=== PATIENT | female | born 2000 | race Caucasian/White ===

== ENCOUNTER → 2021-11-14 11:12 | Outpatient (CLI) | payer OTHER, SELFPAY ==
--- NOTE | ~2021-11-14 | US_ITS ---
EXAMINATION: US OB transvaginal DATE: 11/14/2021 11:39 INDICATION: Evaluate viability TECHNIQUE: Real-time transvaginal obstetric ultrasound. FINDINGS: No prior studies for comparison. The uterus measures 9.4 x 5.7 x 7.1 cm. There is an intrauterine gestational sac, with pole evert ntified. Uterus is retroverted. The crown rump length measures 3.19 cm, which correlates with a estim ated gestational age of 10 weeks 1 day. heart tones are identified measuring 168 BPM. The ova amber are within normal limits. IMPRESSION: 1. SL IUP with an EGA of 10 weeks, 1 days (EDC by current ultrasound of 06/11/2022). Reviewed, dictated and finalized at location A. W MACHINE ADJUSTER AUTOMATIC IMPRESSION: 1. SL IUP with an EGA of 10 weeks, 1 days (EDC by current ultrasound of 06/11/20 22).
== END ==
PROVIDERS: Visit Provider Nurse Practitioner
DX: Z36.9 Encounter for antenatal screening, unspecified (principal); Z3A.10 10 weeks gestation of pregnancy
CPT/HCPCS: 76817

== ENCOUNTER → 2022-01-23 10:50 | Outpatient (CLI) | payer OTHER, SELFPAY ==
--- NOTE | ~2022-01-23 | US_ITS ---
EXAMINATION: US OB /maternal detail DATE: 01/23/2022 11:51 INDICATION: anatomic survey. TECHNIQUE: Real-time ultrasound of the pelvis was performed. COMPARISON: Ultrasound 11/14/2021 FINDINGS: There is a single living fetus in transverse lie. The placenta is posterior, 6.2 cm from the cervix. heart rate is 138 beats per minute (bpm). The amniotic fluid volume is subjectively normal. The following biometric data were obtained: Biparietal diameter (BPD): 4.7 cm; head circumference (HC): 17.4 cm; abdominal circumference (AC): 15 .7 cm; femur length (FL): 3.1 cm. These measurements are concordant. Estimated weight is 342 g +/- 51 g, which correlates with the 52nd percentile when 06/11/22 is u sed as estimated date of delivery. As single measurements, these parameters are each equal to the following estimated gestational ages w ith ranges of +/- 2 standard deviations: BPD: 20 weeks 2 days (18 weeks 4 days - 22 weeks 0 days). HC: 20 weeks 0 days (18 weeks 3 days - 21 weeks 3 days). AC: 20 weeks 6 days (18 weeks 6 days - 22 weeks 6 days). FL: 19 weeks 4 days (17 weeks 6 days - 21 weeks 3 days). estimated gestational age based solely on measurements from this exam is 20 weeks 1 days +/- 1 weeks 3 days. The cerebral ventricles, cerebellum, cisterna magna, nuchal fold, and visualized portions of the spin e are normal. The heart is normal. The diaphragm, stomach, kidneys, and bladder are normal. There are two umbilical arteries to yield a 3-vessel cord. The cord insertion is normal. IMPRESSION: 1. Single living fetus in transverse lie. 2. Estimated weight is 342 g +/- 51 g, which correlates with the 52nd percentile when 06/11/22 is used as estimated date of delivery. This date was set by ultrasound on 11/14/2021. 3. Normal anatomic survey. Reviewed, dictated and finalized at location A. IMPRESSION: 1. Single living fetus in transverse lie. 2. Estimated weight is 342 g +/- 51 g, which correlates with the 52nd pe rcentile when 06/11/22 is used as estimated date of delivery. This date was set by ultrasound on 11/14/2021. 3. Normal anatomic survey.
== END ==
PROVIDERS: PCP Family Medicine; Visit Provider Obstetrics & Gynecology Gynecology
DX: Z34.92 Encounter for supervision of normal pregnancy, unspecified, second trimester (principal); Z3A.20 20 weeks gestation of pregnancy
CPT/HCPCS: 76805

== ENCOUNTER 2022-04-03 08:27 | Outpatient (CLI) | payer OTHER, SELFPAY ==
[2022-04-03] VITALS (9 sets, daily range): BP systolic 111–124; BP diastolic 53–74; PULSE 63–81
--- NOTE | 2022-04-03 09:15 | PC.NURSE ---
Sent to OB from office. Pt states she has swelling of lower extremities which has increased. Pt states was in office and blood pressure was higher than normal . Pt has noted 3+ edema noted to lower extremities with pitting noted. Reflexes 1-2+. No clonus. NO other symptoms. 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
[2022-04-03 09:18] LABS: Basophils Percent Auto 0.3 % (0.2-1.2); Eosinophils Absolute Auto 0.1 K/mm3 (0-0.3); Eosinophils Percent Auto 0.8 % (0-4.4); Hematocrit 25.8 % (37.0-47.0); Hemoglobin 8.1 g/dL (12.0-15.0); Immature Granulocyte Absolute 0.05 K/mm3 (0.00-0.031); Immature Granulocyte Percent A 0.7 % (0-0.5); Lymphocytes Absolute Auto 1.64 K/mm3 (0.9-3.2); Lymphocytes Percent Auto 21.8 % (18.3-44.2); Mean Corpuscular HGB Conc 31.4 g/dl (32-36); Mean Corpuscular Hemoglobin 28.5 pg (26-34); Mean Corpuscular Volume 90.8 fl (80-100); Mean Platelet Volume 9.5 fl (7.4-10.4); Monocytes Absolute Auto 0.5 K/mm3 (0.1-0.6); Monocytes Percent Auto 7.2 % (2.6-8.5); Neutrophils Absolute Auto 5.2 K/mm3 (1.3-6.7); Neutrophils Percent Auto 69.2 % (45.5-73.1); Platelet Count Result 401 k/mm3 (150-375); Red Blood Count 2.84 M/mm3 (4.2-5.4); Red Cell Distribution Width 13.2 % (11.5-14.5); White Blood Count 7.5 K/mm3 (4.5-10.0)
[2022-04-03 09:31] LABS: Appearance Urine Slightly Cloudy (Clear); Bilirubin Urine Negative (Negative); Glucose Urine UA Negative (Negative); Ketones Urine Negative (Negative); Leukocyte Esterase Ur 2+ LEU/UL (NEGATIVE); Nitrate Urine Negative (Negative); Protein Urine Negative (Negative); Specific Grav Ur 1.015 (1.001-1.035); Urobilinogen Urine 0.2 mg/dL (<2.0)
[2022-04-03 09:35] LABS: Mucus Urine Rare /lpf; RBC Urine 0-2 /hpf (0-2); Squamous Epithelial Cell Urine Many /hpf (Few)
[2022-04-03 09:37] LABS: Add Urine Microscopic? YES; Alanine Aminotransferase 12 U/L (6-35); Albumin Level 2.9 g/dL (3.5-5.1); Alkaline Phosphatase 101 U/L (38-126); Anion Gap 4 mmol/L (8-16); Aspartate Amino Transferase 18 U/L (14-36); Bilirubin,Total 0.1 mg/dL (0.2-1.3); Blood Urea Nitrogen 5 mg/dL (7-17); Blood Urine Trace-Intact (Negative); Calcium 8.9 mg/dL (8.4-10.2); Carbon Dioxide 22 mmol/L (22-30); Chloride 109 mmol/L (98-107); Color Urine Light Yellow (Yellow); Estimated Glomerular Filt Rate > 60; Glucose 100 mg/dL (65-110); Potassium 3.4 mmol/L (3.4-5.0); Sodium 135 mmol/L (137-145); Uric Acid 3.3 mg/dL (2.5-7.5)
[2022-04-03 10:42] LABS: Creatinine Urine 46.5 mg/dL; Total Protein Urine Random 12 mg/dL; Ur Ttl Prot Creatinine Ratio 0.26 mg/mg (0-0.20)
--- NOTE | 2022-04-03 11:08 | PC.NURSE ---
Lab results called to Dr. Newell. Pt to start 24 hour urine and call office Wednesday. Pt was prescribed Iron today at [facility]. Pt instructed to get RX filled and take as directed due to her anemia and to have repeat HG in one month as instructed at office today. Supplies sent with pt and pt will return with 24 hour urine tomorrow.
== END 2022-04-03 11:10 | disposition home or self-care (01) ==
LOC: ANHOBOP 08:44 → ANHLDR 08:45
PROVIDERS: PCP Family Medicine; Visit Provider Obstetrics & Gynecology Gynecology
DX: M79.89 Other specified soft tissue disorders (principal); O13.9 Gestational [pregnancy-induced] hypertension without significant proteinuria, unspecified trimester; Z3A.00 Weeks of gestation of pregnancy not specified
CPT/HCPCS: 36415; 59025; 80053; 81001; 82570; 84156; 84550; 85025; 87086; 99199

== ENCOUNTER 2022-04-04 12:16 | Outpatient (NON) | payer OTHER, SELFPAY ==
[2022-04-04 14:21] VITALS: BMI 45.6
[2022-04-04 14:33] LABS: Collection Time Urine 24 HOURS
[2022-04-04 14:35] LABS: Total Volume 24 Hour Urine 1800 ml
[2022-04-04 14:44] LABS: Creatinine Clearance Urine 178.9 ml/min (75-125); Creatinine Urine 88.7 mg/dL; Patient Weight 257 Lbs; Total Protein Urine 24 Hr 198 mg/24hr (28-141); Total Protein Urine Random 11 mg/dL
== END 2022-04-04 12:17 | disposition home or self-care (01) ==
LOC: ANHOBOP 12:17
PROVIDERS: PCP Family Medicine; Visit Provider Obstetrics & Gynecology Gynecology
DX: M79.89 Other specified soft tissue disorders (principal)
CPT/HCPCS: 81050; 82575; 84156

== ENCOUNTER 2022-06-08 10:55 | Inpatient (IN) | payer OTHER, SELFPAY ==
[2022-06-08] VITALS (36 sets, daily range): BP systolic 122–159; BP diastolic 63–93; PULSE 54–80; TEMP 36.4–36.6
[2022-06-08] MEDS: miSOPROStol 25 MCG TABLET VAGINAL (12:48)
[2022-06-08 13:01] LABS: Basophils Percent Auto 0.4 % (0.2-1.2); Eosinophils Absolute Auto 0.1 K/mm3 (0-0.3); Eosinophils Percent Auto 0.8 % (0-4.4); Hemoglobin 9.9 g/dL (12.0-15.0); Immature Granulocyte Absolute 0.04 K/mm3 (0.00-0.031); Immature Granulocyte Percent A 0.5 % (0-0.5); Lymphocytes Absolute Auto 1.71 K/mm3 (0.9-3.2); Lymphocytes Percent Auto 21.4 % (18.3-44.2); Mean Corpuscular HGB Conc 31.9 g/dl (32-36); Mean Corpuscular Hemoglobin 28.9 pg (26-34); Mean Corpuscular Volume 90.6 fl (80-100); Mean Platelet Volume 10.9 fl (7.4-10.4); Monocytes Absolute Auto 0.7 K/mm3 (0.1-0.6); Monocytes Percent Auto 8.8 % (2.6-8.5); Neutrophils Absolute Auto 5.5 K/mm3 (1.3-6.7); Neutrophils Percent Auto 68.1 % (45.5-73.1); Platelet Count Result 370 k/mm3 (150-375); Red Blood Count 3.42 M/mm3 (4.2-5.4); Red Cell Distribution Width 15.7 % (11.5-14.5)
[2022-06-08] MEDS: LACTATED RINGERS 1,000 ML 125 ML IV CONT (17:17)
[2022-06-08] MEDS: OXYTOCIN 30 UNITS/NS 500 ML 30 UNITS/500 ML BAG IV CONT (17:17)
--- NOTE | 2022-06-08 17:31 | WPDOBADMIT ---
Obstetrics - Admit Note Admission Note: record reviewed. No pertinent additions to the history and/or any subsequent changes in the physical findings that are not consistent with the expected course of the were found. Additions to the history and/or subsequent changes in the physical findings follow. Pt arrived for elective IOL at 39 weeks 3 days.
--- NOTE | 2022-06-08 17:32 | PM.OBPNLAB ---
Pain Control Date/time seen: 06/08/22 17:20 Pain control: tolerating well Comments: Feeling occasional cramping/contractions Pelvic Exam Dilation (cm): 3 Effacement (%): 80 station: -3 Amniotic membrane status: Intact Contractions Monitor mode: External Contraction pattern: Irregular Contraction phase: Resting Status status: Category l Assessment and Plan Assessment: induction ongoing Plan: continuous present management Comments: Yao is status post 1 Cytotec for cervical ripening. Her cervix is 3/80%/ -3 station. Discussed option of amniotomy with patient. She would like to wait as long as possible to break her water. Discussed Pitocin as the next step and she is agreeable. Will start Pitocin at this time and titrate as needed to achieve adequate contraction pattern. Anticipate vaginal .
--- NOTE | 2022-06-08 19:19 | WPDANESEPP ---
Anes - Eval Pre Procedure Procedure: labor epidural Date/Time: 06/08/22 19:19 Surgeon: skyler Preop Diagnosis: pain during labor Pre Op Diagnosis: Induction of Labor Patient Data Age: 22 Gender: F Height: Weight: Last Vital Signs Temp 36.6 C 06/08/22 18:12 Pulse 56 L 06/08/22 19:16 BP 159/88 H 06/08/22 19:16 O2 Del Method Room Air 06/08/22 12:29 Allergies Allergy/AdvReac Type Severity Reaction Status Date / Time No Known Allergies Allergy Verified 10/09/21 16:42 Home Medications Medication Instructions Recorded Confirmed Type prenat.vits,juan carlos,[id number] 1 tablet PO DAILY 10/09/21 06/08/22 History albuterol sulfate 90 mcg/actuation 2 puff inhalation Q6H PRN Wheezing 05/16/22 06/08/22 History aerosol inhaler cholecalciferol (vitamin D3) 1,250 1,250 mcg PO WEEKLY 05/16/22 05/16/22 History mcg (50,000 unit) tablet ferrous sulfate 325 mg (65 mg 325 mg PO BID 05/16/22 05/16/22 History iron) tablet Laboratory Tests 06/08/22 06/08/22 06/08/22 12:46 12:46 12:46 WBC 8.0 K/mm3 K/mm3 (4.5-10.0) RBC 3.42 M/mm3 L M/mm3 (4.2-5.4) Hgb 9.9 g/dL L g/dL (12.0-15.0) Hct 31.0 % L % (37.0-47.0) MCV 90.6 fl fl (80-100) MCH 28.9 pg pg (26-34) MCHC 31.9 g/dl L g/dl (32-36) RDW 15.7 % H % (11.5-14.5) Plt Count 370 k/mm3 k/mm3 (150-375) MPV 10.9 fl H fl (7.4-10.4) Immature Gran % (Auto) 0.5 % % (0-0.5) Neut % (Auto) 68.1 % % (45.5-73.1) Lymph % (Auto) 21.4 % % (18.3-44.2) Freeborn % (Auto) 8.8 % H % (2.6-8.5) Eos % (Auto) 0.8 % % (0-4.4) Baso % (Auto) 0.4 % % (0.2-1.2) Lymph # (Auto) 1.71 K/mm3 K/mm3 (0.9-3.2) Freeborn # (Auto) 0.7 K/mm3 H K/mm3 (0.1-0.6) Eos # (Auto) 0.1 K/mm3 K/mm3 (0-0.3) Baso # (Auto) 0.0 K/mm3 K/mm3 (0.0-0.1) Abs Immat Gran (auto) 0.04 K/mm3 H K/mm3 (0.00-0.031) Absolute Neuts (auto) 5.5 K/mm3 K/mm3 (1.3-6.7) Absolute Nucleated RBC 0.0 K/mm3 K/mm3 (0.0-0.012) Nucleated RBC % 0.0 % % (0.0-0.2) RPR Pending Blood Type A Positive Antibody Screen Negative Patient hx anesthesia problems: none Family hx anesthesia problems: none Results Review: All pre-operative results and documents have been reviewed as part of the pre-operative evaluation. [facility] Family History Family History Father Family history of malignant neoplasm of testis Social History Social History (Updated 10/09/21 @ 16:46 by French Claudio PA-C) Smoking status: Never smoker Second hand tobacco smoke exposure: No Alcohol intake: never Substance use: never Substance use type: does not use Spiritual care concerns: No Exam Day of Procedure 06/08/22 19:19
[2022-06-09] VITALS (181 sets, daily range): BP systolic 88–157; BP diastolic 50–126; PULSE 50–282; RESP 16–18; TEMP 35.8–37.1; O2SAT 81–100
[2022-06-09] MEDS: LACTATED RINGERS 1,000 ML 125 ML IV CONT ×2 (02:43→07:50)
[2022-06-09] MEDS: ONDANSETRON INJ 4 MG/2 ML VIAL IV PUSH (06:28)
[2022-06-09] MEDS: fentaNYL CITRATE INJ (*CRX) 100 MCG/2 ML VIAL IV PUSH (06:29)
[2022-06-09] MEDS: FAMOTIDINE 20 MG/2 ML VIAL IV PUSH (06:58)
[2022-06-09 07:08] LABS: Rapid Plasma Reagin Non-Reactive (NonReactive)
--- NOTE | 2022-06-09 07:46 | P.PNOB_ITS ---
Pain Control Date/time seen: 06/09/22 07:30 Pain control: narcotic analgesia Comments: Feeling ctx about every 3 minutes, increasing in intensity. Pelvic Exam Dilation (cm): 4 Effacement (%): 85 station: -3 Amniotic membrane status: Intact Comments: head well applied to cervix. Contractions Monitor mode: External Contraction pattern: Irregular Contraction phase: Resting Status status: Category l Assessment and Plan Pitocin rate (mU/min): 20 Assessment: induction ongoing Comments: Discussed plan of care with Yao and her partner. Given that there has been minimal cervical change with Pitocin alone, recommended amniotomy. Discussed risks and benefits. also discussed recommendation for intrauterine pressure catheter to better evaluate contraction adequacy. She agrees to rupture of memb ranes and IUPC placement. Amniotomy performed with scant return of clear amniotic fluid. Small amount of bloody show present intrauterine pressure catheter inserted and clear fluid returned the catheter. Pitocin rate decreased in half with AROM. Plan to increase Pitocin as needed to achieve adequate contraction pattern. Anticipate vaginal .
[2022-06-09] MEDS: OXYTOCIN 30 UNITS/NS 500 ML 30 UNITS/500 ML BAG 125 UNITS IV CONT (14:11)
--- NOTE | 2022-06-09 14:45 | PM.OBPRVD ---
OB - Delivery Note Procedure Delivery date: 06/09/22 Procedure: Events: Other (Covid in , Asthma, scoliosis) Induction method: Per Misoprostol Protocol Delivery augmentation: Rupture of Membranes Delivery monitor: External FHT, External Uterine and Internal Uterine Route of delivery: Episiotomy description: None Laceration Description: Vaginal (1st degree) and Labial (Bilateral labial. Full thickness button hole to left labia) Delivery repair: vicryl Specimen: Yes Quantitative Blood Loss (ml): 650 Anesthesia type: Epidural Disposition: Floor Narrative: CNM to bedside for delivery. RN reports that she pushed with the patient 1 time and immediately after the push patient had seizure-like posturing in that the patient's eyes rolled back in her head. This lasted about 10 seconds. In pushing was stopped. CNM arrived immediately afterwards. Patient resting in bed with oxygen mask applied effaced. Patient alert and oriented, answers questions appropriately the, and is not postictal. Patient denies headache visual changes or right upper quadrant pain. Viital signs within normal limits. heart rate tracing reassuring. Pushing resumed, and patient quickly progressed to . Immediately before she brought the head to a complete crown there was a slow trickle of bright red blood from the vagina. She delivered the head easily, there was good restitution, and the remainder of the delivered easily. The was placed skin to skin on the maternal abdomen and dried and stimulated. The cord was doubly clamped and cut. Vaginal laceration repaired in the usual fashion. Right labial laceration also repaired in the usual usual fashion with 3-[address] Newell for assistance with remainder of repair. repaired the left labial laceration in the buttonhole laceration to the left labia. There was excellent hemostasis. CBC, CMP, uric acid ordered. Encourage patient to notify staff member immediately for headache, visual changes, or right upper quadrant pain. Baby Date of : 06/09/22 Time of : 13:47 Weeks of gestation at delivery: 39 gender: Male Weight (pounds): 7 Weight (ounces): 11 presentation: vertex position: Left Occiput Anterior Placenta delivery description: Spontaneous Cord Vessel Description: 3 Vessels (marginal insertion) score one minute: 9 score five minutes: 9
--- NOTE | 2022-06-09 14:53 | PM.DS ---
DS: Admitting Diagnosis Discharge Date 06/11/22 Admitting Diagnosis IUP at 39 weeks gestation. Elective IOL Asthma Scoliosis DS: Discharge Diagnosis Discharge Diagnosis (1) (normal spontaneous vaginal delivery): Code(s): O80 - Encounter for full-term uncomplicated delivery Status: Acute DS: Summary Hospital Course Reason for hospitalization: Childbirth Hospital Course: Uncomplicated Status at Discharge Overall status at discharge: patient is progressing back to baseline Time Spent with Patient Time attestation: Total time spent providing and/or coordinating discharge services: Exam Narrative: Alert and oriented. Mood is pleasant and cooperative. Urinating without difficulty. Denies passing any large clots. Perineum with moderate edema. Const: General: no acute distress Orientation/consciousness: patient oriented x3 Limitations: no limitations Resp: Effort & Inspection: normal respiratory effort Auscultation: clear to auscultation bilaterally Cardio: Rate: regular rate GI: Inspection: normal to inspection Neuro: General: patient oriented x3 Extrem: General: normal to inspection Psych: Appearance: grossly normal Mental Status: mental status grossly normal Affect: normal affect Thought process: Normal thought process present DS: Data Data Completed and Pending Pending studies at discharge: Pending at discharge 06/09/22 13:55 Surgical [PTH] Routine Labs on day of discharge: Labs from last 24 hours 06/08/22 12:46 RPR Non-reactive Discharge Plan Discharge Attending physician on discharge: Angelita Newell Discharging Clinician: Nena Warren Anticipated Discharge Date/Time: 06/11/22 14:54 Patient Disposition: Home, Self-Care Activity: may shower Diet: as tolerated and regular Patient Instructions: Antibiotic Form Stand Alone Forms: General Discharge Information Follow-up/Referrals: Nena Warren, CNM [Certified Nurse Tie Binder] - (6 weeks post ) Discharge Medications: New polysaccharide iron complex 150 mg iron Capsule 150 mg PO BIDWM 60 Days Qty: 120 0RF ibuprofen 600 mg Tablet 600 mg PO Q6H PRN (Reason: Cramping) 30 Days Qty: 45 0RF hydrocodone-acetaminophen 5-325 mg tablet 1 tablet PO Q4H PRN (Reason: pain) Qty: 15 0RF docusate sodium 100 mg Capsule 100 mg PO BID PRN (Reason: Constipation) Qty: 60 0RF vit-iron fum-folic ac [ Vitamin with Minerals] 28 mg iron- 800 mcg tablet 1 tablet PO DAILY Qty: 90 3RF norethindrone (contraceptive) [Ortho Micronor] 0.35 mg tablet 0.35 mg PO DAILY 30 Days Qty: 84 0RF Rx Instructions: Start at 4-6 weeks post , once milk supply is well established Continued prenat.vits,juan carlos,[id number] Tablet 1 tablet PO DAILY ferrous sulfate 325 mg (65 mg iron) Tablet 325 mg PO BID cholecalciferol (vitamin D3) 1,250 mcg (50,000 unit) Tablet 1,250 mcg PO WEEKLY Label Comments: Pt unsure of dosage amount Rx Instructions: Pt unsure of dosage amount albuterol sulfate 90 mcg/actuation HFA aerosol inhaler 2 puff INHALATION Q6H PRN (Reason: Wheezing) Label Comments: Rescue Inhaler Date of admission: 06/08/22 10:55 Primary Care Provider: Edwin Haney Admitting Provider: Angelita Newell Attending physician on admission: Angelita Newell Condition: Stable
[2022-06-09] MEDS: IBUPROFEN 600 MG TABLET PO ×2 (16:14→23:40)
[2022-06-09] MEDS: ACETAMINOPHEN 325 MG TABLET 650 MG PO ×2 (17:04→23:40)
[2022-06-09] MEDS: BENZOCAINE 20% AER SPR (*SP) 56 GM CAN 1 SPRAY TOPICAL (17:05)
[2022-06-09] MEDS: WITCH HAZEL 40 PADS 1 PAD TOPICAL (17:05)
[2022-06-09 19:52] LABS: Alanine Aminotransferase 16 U/L (6-35); Albumin Level 2.3 g/dL (3.5-5.1); Alkaline Phosphatase 174 U/L (38-126); Anion Gap 6 mmol/L (8-16); Aspartate Amino Transferase 21 U/L (14-36); Bilirubin,Total 0.1 mg/dL (0.2-1.3); Blood Urea Nitrogen 9 mg/dL (7-17); Calcium 8.4 mg/dL (8.4-10.2); Carbon Dioxide 19 mmol/L (22-30); Chloride 111 mmol/L (98-107); Estimated Glomerular Filt Rate > 60; Glucose 130 mg/dL (65-110); Potassium 3.6 mmol/L (3.4-5.0); Sodium 136 mmol/L (137-145); Uric Acid 4.8 mg/dL (2.5-7.5)
[2022-06-09] MEDS: ZOLPIDEM TARTRATE (*CRX) 5 MG TABLET PO (21:23)
[2022-06-10] MEDS: IBUPROFEN 600 MG TABLET PO ×3 (06:18→21:37)
--- NOTE | 2022-06-10 08:09 | P.PNOB_ITS ---
OB - PN: Subj Subjective Date/time seen: 06/10/22 0730 Patient comments: other (labial and vaginal pain) baby status: doing well [place] feeding status: breast and bottle feeding Narrative: poor latch overnight, consult placed. OB - PN: Obj Data Labs CBC & Chem 7: 06/08/22 12:46 06/09/22 19:22 Labs: Laboratory Results - last 24 hr 06/09/22 19:22 Sodium 136 L Potassium 3.6 Chloride 111 H Carbon Dioxide 19 L Anion Gap 6 L BUN 9 Creatinine 0.70 Estim Creat Clear Calc Not Reportable Estimated GFR > 60 Glucose 130 H Uric Acid 4.8 Calcium 8.4 Total Bilirubin 0.1 L AST 21 ALT 16 Alkaline Phosphatase 174 H Total Protein 5.0 L Albumin 2.3 L OB - PN A/P Plan day: 1 Plan: routine care Comments: [place] ordered for pain. Time Spent With Patient Time: Total time spent is greater than 50% in coordination of care (as documented) at patient's floor/unit and/or counseling patient: Review of Systems Review of Systems: All systems reviewed & are unremarkable except as noted in HPI and below Exam Narrative: Alert and oriented. Mood is pleasant and cooperative. Urinating without difficulty. Denies passing any large clots. Labia with moderate amount of edema. Const: General: no acute distress Orientation/consciousness: patient oriented x3 Limitations: no limitations Resp: Effort & Inspection: normal respiratory effort Auscultation: clear to auscultation bilaterally Cardio: Rate: regular rate GI: Inspection: normal to inspection Neuro: General: patient oriented x3 Extrem: General: normal to inspection Psych: Appearance: grossly normal Mental Status: mental status grossly normal Affect: normal affect Thought process: Normal thought process present
--- NOTE | 2022-06-10 08:39 | WPDANLDPN2 ---
Anes-Prog Note L&D Date/Time: 06/10/22 08:39 Comfortable throughout: labor and delivery Neuraxial method: epidural Epidural/Spinal procedure site: clean & non-tender Neuro status: Neuro function grossly intact. Cardiovascular status: normal Respiratory status: normal Airway patency: baseline Mental status: baseline Post-Op hydration status: normal Vital Signs: Last Vital Signs Temp 97.9 F 06/09/22 19:00 Pulse 97 06/09/22 19:00 Resp 18 06/09/22 19:00 BP 120/79 06/09/22 19:00 Pulse Ox 100 06/09/22 14:25 O2 Del Method Room Air 06/09/22 19:00 Pain score (VAS): 2 I/O: Intake & Output 06/09/22 06/10/22 06/10/22 23:59 07:59 15:59 Intake Total 400 Output Total 60 Balance 340 Post-procedural complaints: none Patient feedback: Patient satisfied with anesthetic care.
[2022-06-10 08:55] VITALS: BP 127/77; PULSE 68; RESP 16; TEMP 36.9; O2SAT 100
[2022-06-10 09:00] VITALS: PULSE 68; RESP 16; O2SAT 100
[2022-06-10] MEDS: DOCUSATE SODIUM 100 MG CAPSULE PO ×2 (09:00→16:04)
[2022-06-10] MEDS: MULTIVIT/MIN/PREN/FOL AC/IRON TABLET 1 TAB PO (09:00)
[2022-06-10] MEDS: WITCH HAZEL 40 PADS 1 PAD TOPICAL (09:00)
[2022-06-10] MEDS: FERROUS SULFATE 324 MG TABLET PO ×2 (09:00→16:04)
[2022-06-10] MEDS: BENZOCAINE 20% AER SPR (*SP) 56 GM CAN 1 SPRAY TOPICAL (09:00)
[2022-06-10] MEDS: HYDROcodone/acetaminophen (*CRX) 5-325 MG TABLET 1 TAB PO ×3 (09:00→21:37)
[2022-06-10 11:56] VITALS: BP 115/62; PULSE 57; RESP 18; TEMP 37.1; O2SAT 100
[2022-06-10 12:00] VITALS: PULSE 57; RESP 18; O2SAT 100
[2022-06-10 14:56] LABS: Hematocrit 25.6 % (37.0-47.0); Hemoglobin 8.1 g/dL (12.0-15.0)
--- NOTE | 2022-06-10 16:59 | PC.NURSE ---
[id number] Introductions were made, then consulted with patient to assess needs related to . Mother led the conversation with her?plans to feed?her infant and the?experience so far. Resources provided for inpatient and outpatient services using a resource guide and mom/baby guide. Mother voiced understanding of information and requests assistance. Mother works with her infant with encouragement and education. Encouraged understanding of the benefits of skin to skin (unwrapping and placing vertically on her chest), responsive feeding and how to watch for early feeding signs, frequency of feeding on demand about every 8-12 times in 24 hours (every 2-3 hours), milk production, hand expression, risks and benefits of using a nipple shield, care and usage of pumping, signs of adequate intake/output using the pie demonstration, stimulating with massaging touch and how to record on the feeding sheet. Nipple care reviewed with optimal latch and good positioning. Reviewed good handwashing when or touching the breast/nipples to prevent infection. Resources used to facilitate learning were used with the visual handouts, tool. is not demonstrating efforts to breastfeed. Blood sugar was resulted at 68 mg/dl, large transitional stool diaper changed, discussed supplementing this morning with formula along with the risks and benefits. Mother voiced understanding of responsive feedings, stimulating with skin to skin, hand expressed colostrum, massage touch, talking to infant to encourage if it has been 2 -3 hours since the start of the last , to call if does not latch or there is discomfort with . 1608 - RN to purposefully round on patient and primary RN was taking to the nursery for testing. is demonstrating feeding cues. 1625 - 1651 RN placed infant skin to skin with mother to calm and reorganize. is demonstrating late feeding cues with crying and is difficult to calm. Mother is able to calm with soft sh sounds, patting, skin to skin with encouragement and education. Reviewed working with infant, breast, nipples and how to protect the nipples with an optimal deep latch, good positioning, and good hand washing. Reviewed positioning and alignment, supporting breast, off-centered (asymmetrical latch) and leading with the chin with big open wide gape. Infant latched optimally to the left breast in a modified laid-back cross cradle position. Education given to mother of how to visualize suck/swallow ratios. Infant was able to maintain latch without discomfort to mother after the 3rd attempt. Nipple care reviewed with optimal latch and good positioning. Mother voiced understanding of the education shared, calling for assistance if the does not latch or if there is discomfort with . Reported to the primary RN.
[2022-06-10 20:15] VITALS: BP 129/83; PULSE 103; RESP 18; TEMP 36.8; O2SAT 97
[2022-06-11] MEDS: HYDROcodone/acetaminophen (*CRX) 5-325 MG TABLET 1 TAB PO ×4 (01:52→15:26)
[2022-06-11] MEDS: IBUPROFEN 600 MG TABLET PO (06:08)
[2022-06-11] MEDS: SIMETHICONE 80 MG TAB.CHEW PO (06:09)
[2022-06-11 08:00] VITALS: PULSE 84; RESP 18; O2SAT 100
[2022-06-11 08:15] VITALS: BP 132/82; PULSE 84; RESP 18; TEMP 37; O2SAT 100
--- NOTE | 2022-06-11 10:35 | PC.NURSE ---
1003 - 0097 Mother led the conversation with her experience and plan to feed her so far and her ability to latch her infant this morning at 0547 - 0557 with no pain. Parents have a plan of attempting to breastfeed, pumping, supplementing with formula to feed infant. Mother states she has a relative that had a baby not breastfeed in the hospital and is now successfully at home and that is her plan at this time. Reviewed with the parents of guidelines of feeding appropriately for growth of and stimulating infant to eat. Infant has had several attempts at the breast, formula fed at 0600 due to a lack of effectively, mother has been pumping her breast for milk production and infant meets the outcomes for weight, output and jaundice at this time. Mother states she is confident to continue attempting to breastfeed and feed her at home, when to call for assistance and denies any additional assistance or education at this time. is sleeping in the bassinet, it has been 4 hours since the last feeding. Reviewed education of skin to skin, stimulating infant to feed and mother received offer of placing her infant skin to skin on her chest. is sleepy and makes no effort to breastfeed. Mother makes a decision to formula feed at this time, then pump her breast for stimulation. Reinforced understanding of milk production, transition of milk, signs of adequate intake, prevention/relief of engorgement, responsive after visualizing feeding cues, the different methods of stimulating to breastfeed 2-3 hours after the start of the last feeding, community resources, medication information reviewed per [employer] and when to call a provider using the resource of the mom and baby guide/[facility] website. Mother voiced understanding of the education shared.
[2022-06-11] MEDS: DOCUSATE SODIUM 100 MG CAPSULE PO (10:55)
[2022-06-11] MEDS: MULTIVIT/MIN/PREN/FOL AC/IRON TABLET 1 TAB PO (10:55)
[2022-06-11] MEDS: FERROUS SULFATE 324 MG TABLET PO ×2 (11:01→11:02)
--- NOTE | 2022-06-11 13:09 | PM.OBPNVD ---
OB - PN: Subj Subjective Date/time seen: 06/11/22 1250 Patient comments: pain well controlled feeding status: breast and bottle feeding OB - PN: Obj Data Labs CBC & Chem 7: 06/10/22 14:48 06/09/22 19:22 Labs: Laboratory Results - last 24 hr 06/10/22 14:48 Hgb 8.1 L Hct 25.6 L OB - PN A/P Assessment and Plan (1) (normal spontaneous vaginal delivery): Code(s): O80 - Encounter for full-term uncomplicated delivery Status: Acute (2) Anemia: Qualifiers: Anemia type: unspecified type Qualified Code(s): D64.9 - Anemia, unspecified Code(s): D64.9 - Anemia, unspecified Status: Acute (3) Mother currently breast-feeding: Code(s): Z39.1 - Encounter for care and examination of lactating mother Status: Acute Plan day: 2 Plan: discharge home Time Spent With Patient Time: Total time spent is greater than 50% in coordination of care (as documented) at patient's floor/unit and/or counseling patient: Review of Systems Review of Systems: All systems reviewed & are unremarkable except as noted in HPI and below Exam Narrative: Alert and oriented. Mood is pleasant and cooperative. Urinating without difficulty. Denies passing any large clots. Perineum with moderatel edema. Sutures intact, labia healing. Const: General: no acute distress Orientation/consciousness: patient oriented x3 Limitations: no limitations Resp: Effort & Inspection: normal respiratory effort Auscultation: clear to auscultation bilaterally Cardio: Rate: regular rate GI: Inspection: normal to inspection Neuro: General: patient oriented x3 Extrem: General: normal to inspection Psych: Appearance: grossly normal Mental Status: mental status grossly normal Affect: normal affect Thought process: Normal thought process present
--- NOTE | 2022-06-11 13:39 | PC.NURSE ---
Patient viewed the discharge video Mother & Baby Care, The First Two Weeks . Patient was given the opportunity and encouraged to ask questions. Patient verbalized understanding of information shared and has been given the mother/baby guide for home reference.
[2022-06-12 11:25] VITALS: BP 129/76; PULSE 96; RESP 20; TEMP 36.9; O2SAT 100
== END 2022-06-11 15:29 | disposition home or self-care (01) | DRG 807 ==
LOC: ANHLDR 06-09 14:54 → ANHOB2 06-09 18:34
PROVIDERS: Advanced Practice Midwife; Admitting Provider Obstetrics & Gynecology Gynecology; PCP Family Medicine; Visit Provider Obstetrics & Gynecology Gynecology
DX: O76 Abnormality in fetal heart rate and rhythm complicating labor and delivery (principal); Z37.0 Single live birth; O99.52 Diseases of the respiratory system complicating childbirth; J45.909 Unspecified asthma, uncomplicated; M41.9 Scoliosis, unspecified; Z86.16 Personal history of COVID-19; O43.123 Velamentous insertion of umbilical cord, third trimester; O99.02 Anemia complicating childbirth; Z3A.39 39 weeks gestation of pregnancy; O70.0 First degree perineal laceration during delivery
CPT/HCPCS: 36415; 80053; 84550; 85014; 85018; 85025; 86592; 86850; 86900; 86901; 88307; A9270; J2405; J2590; J2795; J3010; J7120

== ENCOUNTER 2023-08-16 15:59 | Outpatient (CLI) | payer OTHER, SELFPAY ==
--- NOTE | ~2023-08-16 | US_ITS ---
EXAMINATION: US OB transvaginal DATE: 08/16/2023 16:24 INDICATION: Uncertain dates. TECHNIQUE: Real-time transvaginal pelvic ultrasound was performed. COMPARISON: None. FINDINGS: The uterus measures 8.7 x 6.0 x 6.7 cm. There is an intrauterine gestational sac. A yolk sac is ident ified. The crown rump length measures 1.9 cm, which correlates with an estimated gestational a ge of 8 weeks and 3 day(s) (+/-) 5 day(s). heart motion is identified measuring 175 beats per m inute (bpm) by M-mode Doppler. The right ovary is not visualized. The left ovary measures 2.2 x 2.2 x 2.1 cm. There is no free fluid in the pelvis. IMPRESSION: 1. Single living intrauterine gestation with estimated date of delivery of 03/24/2024. Reviewed, dictated and finalized at location E. DING CONSULTANT IMPRESSION: 1. Single living intrauterine gestation with estimated date of delivery of 03/13.
== END 2023-08-16 16:00 ==
LOC: MICIMG 16:00
PROVIDERS: PCP Advanced Practice Midwife; Visit Provider Advanced Practice Midwife
DX: Z36.87 Encounter for antenatal screening for uncertain dates (principal); Z3A.00 Weeks of gestation of pregnancy not specified
CPT/HCPCS: 76817

== ENCOUNTER 2023-11-06 10:48 | Outpatient (CLI) | payer OTHER, SELFPAY ==
--- NOTE | ~2023-11-06 | US_ITS ---
EXAMINATION: US OB /maternal detail DATE: 11/06/2023 11:38 INDICATION: survey TECHNIQUE: Multiple obstetric sonographic images performed. FINDINGS: Comparison ultrasound dated 08/16/2020 There is a single living fetus in breech presentation. The placenta is anterior without placenta pre via. Placental margin 5.7 cm to the cervix. Cervical length 3.7 cm. Amniotic fluid volume is subjecti vely normal. cardiac activity and movement is noted with a heart rate of 138 beats per minute. The following anatomy was identified as normal: 4 chamber heart 3 vessel cord cord insertion kidneys urinary bladder stomach spine diaphragm ventricles cisterna magna cerebellum There is mild prominence of the nuchal fold measuring 0.55 cm. The following biometric data were obtained: BPD: 49mm corresponds to gestational age 20 weeks 5 days. Head circumference: 187 mm corresponds to gestational age 21 weeks 0 days. Abdominal circumference: 153 mm corresponds to gestational age 20 weeks 4 days. Femur length: 32 mm corresponds to gestational age 19 weeks 6 days. Head circumference to abdominal circumference ratio: 1.22 (normal range for expected gestational age is 1.07-1.25). Estimated weight: 345 grams +/- 52 grams using Hadlock method. IMPRESSION: 1: Single living intrauterine with an estimated gestational age of 20weeks 1days by initial ultrasound measurements, with an EDC of 03/24/2024 in vertex presentation. 2. Mild nuchal thickening measuring 1.55 cm. Recommend attention to this on follow-up examination. O therwise, normal survey. Reviewed, dictated and finalized at location A. ROL OPERATOR IMPRESSION: 1: Single living intrauterine with an estimated gestational age of 20 weeks 1days by initial ultrasound measurements, with an EDC of 03/24/2024 in alysia dayo presentation. 2. Mild nuchal thickening measuring 1.55 cm. Recommend attention to this on fo llow-up examination. Otherwise, normal survey.
== END 2023-11-06 10:49 ==
PROVIDERS: PCP Advanced Practice Midwife; Visit Provider Advanced Practice Midwife
DX: Z36.9 Encounter for antenatal screening, unspecified (principal); Z3A.19 19 weeks gestation of pregnancy
CPT/HCPCS: 76805

== ENCOUNTER 2024-01-29 11:34 | Outpatient (CLI) | payer OTHER, SELFPAY ==
--- NOTE | ~2024-01-29 | US_ITS ---
EXAMINATION: US OB follow up DATE: 01/29/2024 12:03 INDICATION: Size greater than dates. TECHNIQUE: Real-time ultrasound of the pelvis was performed. COMPARISON: Ultrasound of 11/06/2023, 08/16/2023 FINDINGS: There is a single living fetus in vertex presentation. The placenta is anterior. heart rate is 135 beats per minute (bpm). The amniotic fluid index is 10.5 cm, which is normal. The following biometric data were obtained: Biparietal diameter (BPD): 8.1 cm; head circumference (HC): 29.4 cm; abdominal circumference (AC): 29 .1 cm; femur length (FL): 6.1 cm. These measurements are concordant. Estimated weight is 1990 g +/- 298 g, which correlates with the 51st percentile when 03/24/24 is used as estimated date of delivery. As single measurements, these parameters are each equal to the following estimated gestational ages: BPD: 32 weeks 5 days. HC: 32 weeks 3 days. AC: 33 weeks 1 days. FL: 31 weeks 4 days. estimated gestational age based solely on measurements from this exam is 32 weeks 3 days +/- 2 weeks 2 days. IMPRESSION: 1. Single living fetus in vertex presentation. 2. Estimated weight is 1990 g +/- 298 g, which correlates with the 51st percentile when 4 is used as estimated date of delivery. This date was set by ultrasound on 08/16/2023. Reviewed, dictated and finalized at location A. IMPRESSION: 1. Single living fetus in vertex presentation. 2. Estimated weight is 1990 g +/- 298 g, which correlates with the 51st percentile when 03/24/24 is used as estimated date of delivery. This date was se t by ultrasound on 08/16/2023.
== END 2024-01-29 11:35 ==
LOC: MICIMG 11:34
PROVIDERS: PCP Advanced Practice Midwife; Visit Provider Advanced Practice Midwife
DX: O36.63X0 Maternal care for excessive fetal growth, third trimester, not applicable or unspecified (principal)
CPT/HCPCS: 76816

== ENCOUNTER 2024-03-01 10:46 | Outpatient (CLI) | payer OTHER, SELFPAY ==
--- NOTE | ~2024-03-01 | US_ITS ---
EXAMINATION: US OB follow up DATE: 03/01/2024 11:06 INDICATION: Estimated size greater than expected for estimated gestational age during third tri mester TECHNIQUE: Real-time ultrasound of the pelvis was performed. The interpreting radiologist was not pre sent for the study. COMPARISON: None. FINDINGS: There is a single living fetus in vertex presentation. The placenta is anterior. heart rate is 163 beats per minute (bpm). The amniotic fluid index is 3.6 cm, which is significantly below normal range (5th%-95%: 7.7-24.9 cm at 36 weeks estimated gestational age). The following biometric data were obtained: BPD: 9.1 cm -> 37 weeks 1 days Head circumference: 32.1 cm -> 36 weeks 1 days Abdominal circumference: 33.1 cm -> 37 weeks 0 days Femur length: 7.1 cm -> 36 weeks 2 days These measurements are concordant. Head circumference to abdominal circumference ratio: 0.97 (normal range 0.92-1.06). Estimated weight: 3017 g (+/-) 453 g or 6 lbs. 10 oz. (+/-) 1 lb. 0 oz. IMPRESSION: 1. Single living fetus in vertex presentation with heart rate of 163 bpm. 2. Oligohydramnios with amniotic fluid index of 3.6 cm. Correlate clinically for leaking fluids. Find ings were discussed with Nena Warren at Dr. Newell's office at 3:48 PM. 3. Estimated weight is 55th percentile by Hadlock criteria when 03/24/2024 is used as the estima mary date of delivery (DESIREE). Please correlate with clinical information or earlier ultrasounds for mos t accurate DESIREE. Reviewed, dictated and finalized at location A. IMPRESSION: 1. Single living fetus in vertex presentation with heart rate of 163 bpm. 2. Oligohydramnios with amniotic fluid index of 3.6 cm. Correlate clinically fo r leaking fluids. Findings were discussed with Nena Warren at Dr. Newell's o ffice at 3:48 PM. 3. Estimated weight is 55th percentile by Hadlock criteria when 03/24/2024 is used as the estimated date of delivery (DESIREE). Please correlate with clinica l information or earlier ultrasounds for most accurate DESIREE.
== END 2024-03-01 10:47 ==
LOC: GOSHIMG 10:47
PROVIDERS: PCP Advanced Practice Midwife; Visit Provider Advanced Practice Midwife
DX: O41.00X0 Oligohydramnios, unspecified trimester, not applicable or unspecified (principal); O36.63X0 Maternal care for excessive fetal growth, third trimester, not applicable or unspecified; Z3A.00 Weeks of gestation of pregnancy not specified
CPT/HCPCS: 76816

== ENCOUNTER 2024-03-01 17:52 | Inpatient (IN) | payer OTHER, SELFPAY ==
--- NOTE | ~2024-03-01 | US_ITS ---
EXAMINATION: US OB limited DATE: 03/02/2024 07:22 INDICATION: Oligohydramnios. Third trimester. TECHNIQUE: Real-time ultrasound of the pelvis was performed. COMPARISON: Ultrasound 03/01/2024 FINDINGS: There is a single fetus in vertex presentation. The placenta is anterior. heart rate is 125 be ats per minute (bpm). The amniotic fluid index is 4.0 cm, which is low (5th percentile is 7.7 cm). IMPRESSION: 1. Single living fetus in vertex presentation. 2. Oligohydramnios. Reviewed, dictated and finalized at location A.
--- NOTE | 2024-03-01 19:22 | OBADM ---
This patient, Yao Robbins, admitted to the OB room OB Post 113 for observation. Patient/family oriented to hospital policies and general routines including ID bracelet, bed and alarms, visiting hours, pain management, procedures, bathroom and other care routines, personal items, smoking policy, room service/diet, and visiting hours. Patient/Family are encouraged to report perceived risks to care and to ask questions if they do not understand what they are told or what they should do.
[2024-03-01] MEDS: LACTATED RINGERS 1,000 ML 250 ML IV CONT ×2 (19:47→23:45)
[2024-03-01 20:01] LABS: Basophils Percent Auto 0.4 % (0.2-1.2); Eosinophils Absolute Auto 0.1 K/mm3 (0-0.3); Eosinophils Percent Auto 0.5 % (0-4.4); Hematocrit 28.1 % (37.0-47.0); Immature Granulocyte Absolute 0.07 K/mm3 (0.00-0.031); Immature Granulocyte Percent A 0.6 % (0-0.5); Lymphocytes Absolute Auto 2.42 K/mm3 (0.9-3.2); Lymphocytes Percent Auto 21.3 % (18.3-44.2); Mean Corpuscular Volume 87.3 fl (80-100); Monocytes Absolute Auto 0.8 K/mm3 (0.1-0.6); Monocytes Percent Auto 6.9 % (2.6-8.5); Neutrophils Percent Auto 70.3 % (45.5-73.1); Platelet Count Result 339 k/mm3 (150-375); Red Blood Count 3.22 M/mm3 (4.2-5.4); Red Cell Distribution Width 13.9 % (11.5-14.5); White Blood Count 11.4 K/mm3 (4.5-10.0)
[2024-03-01 20:07] VITALS: TEMP 37.1
--- NOTE | 2024-03-01 20:09 | PC.NURSE ---
NST from [id number] on 03/01/2024 FHT: 125 Contractions: irregular 1850: CNM called unit back to confirm orders. CBC, 2L of LR @250ml/hr, UA, and repeat STIVEN in AM. Orders also received to keep observe pt overnight, perform one more NST on this shift and then place pt back on monitor prior to shift change.
--- NOTE | 2024-03-01 20:48 | P.PNOB_ITS ---
OB - PN: Subj Subjective Date/time seen: 03/01/241944 Interval history: Pt arrived from home. Directed to report to L&D by CNM after call from radiologist about STIVEN. Pt denies any active leaking of fluid or gushes of fluid. Pt does c/o increased vaginal moisture/discharge recently but was unable to identify the onset of when this began. Reports good movement. Denies abdominal pain. OB - PN: Obj Data Labs 03/01/24 19:08 Labs: Laboratory Results - last 24 hr 03/01/24 19:08 WBC 11.4 H RBC 3.22 L Hgb 9.0 L Hct 28.1 L MCV 87.3 MCH 28.0 MCHC 32.0 RDW 13.9 Plt Count 339 MPV 10.0 Immature Gran % (Auto) 0.6 H Neut % (Auto) 70.3 Lymph % (Auto) 21.3 [place] % (Auto) 6.9 Eos % (Auto) 0.5 Baso % (Auto) 0.4 Lymph # (Auto) 2.42 [place] # (Auto) 0.8 H Eos # (Auto) 0.1 Baso # (Auto) 0.0 Abs Immat Gran (auto) 0.07 H Absolute Neuts (auto) 8.0 H Absolute Nucleated RBC 0.000 Nucleated RBC % 0.0 OB - PN A/P Plan Comments: 1. 23 y.o. at 36 weeks gestation 2. Oligohydramnios - ROM plus negative, no active leaking of fluid - no efidence of infection. - plan overnight observation. IV and po flluids. NSTs. Plan to recheck STIVEN in the am. - plan IOL if ROM confirmed or if oligo still present. -plan of care discussed with Dr. Newell Time Spent With Patient Time: Total time spent is greater than 50% in coordination of care (as documented) at patient's floor/unit and/or counseling patient:
--- NOTE | 2024-03-01 21:23 | PM.OBTRLD ---
OB - Triage/Final Diagnosis Visit Information Date of evaluation: 03/01/24 Reason for evaluation: other (r/o ROM) Comments/Additional reasons for admission: I have assessed the risk for this patient, Yao Robbins, and determined that she would benefit from observation care. Evaluation Laboratory results: Laboratory Tests 03/01/24 19:08 WBC 11.4 H RBC 3.22 L Hgb 9.0 L Hct 28.1 L MCV 87.3 MCH 28.0 MCHC 32.0 RDW 13.9 Plt Count 339 MPV 10.0 Immature Gran % (Auto) 0.6 H Neut % (Auto) 70.3 Lymph % (Auto) 21.3 [place] % (Auto) 6.9 Eos % (Auto) 0.5 Baso % (Auto) 0.4 Lymph # (Auto) 2.42 [place] # (Auto) 0.8 H Eos # (Auto) 0.1 Baso # (Auto) 0.0 Abs Immat Gran (auto) 0.07 H Absolute Neuts (auto) 8.0 H Absolute Nucleated RBC 0.000 Nucleated RBC % 0.0 Vital signs: Vital Signs - 24 hr 03/01/24 19:22 Oxygen Delivery Room Air Comments: See OB progress note
[2024-03-01 21:26] VITALS: BP 128/76; PULSE 91; PULSE 99; O2SAT 96
[2024-03-01 21:31] VITALS: PULSE 95; O2SAT 97
[2024-03-01 21:33] LABS: Appearance Urine Clear (Clear); Bilirubin Urine Negative (Negative); Blood Urine Negative (Negative); Color Urine Yellow (Yellow); Glucose Urine UA Negative (Negative); Ketones Urine 2+ mg/dL (Negative); Leukocyte Esterase Ur Negative LEU/UL (Negative); Nitrate Urine Negative (Negative); Protein Urine Negative (Negative); Specific Grav Ur 1.014 (1.001-1.035); pH Urine 7.5 (5.0-9.0)
[2024-03-01 21:36] VITALS: PULSE 90; O2SAT 97
[2024-03-01 21:41] VITALS: PULSE 99; O2SAT 97
[2024-03-01 21:44] LABS: Add Urine Microscopic? NO
--- NOTE | 2024-03-01 21:53 | PC.NURSE ---
Spoke with Donny Warren CNM over the phone. Reported lab results, reactive NST, and patient reporting no leaking at this time. Orders received for patient to continue monitoring in the morning and have STIVEN. Patient to have ROM+ test if any new reports of leaking are made by the patient.
[2024-03-02] VITALS (247 sets, daily range): BP systolic 89–158; BP diastolic 51–109; PULSE 59–148; TEMP 36.3–36.7; O2SAT 82–100; BMI 47.8
[2024-03-02] MEDS: LACTATED RINGERS 1,000 ML 250 ML IV CONT (06:19)
--- NOTE | 2024-03-02 07:55 | WPDOBADMIT ---
Obstetrics - Admit Note Admission Note: record reviewed. No pertinent additions to the history and/or any subsequent changes in the physical findings that are not consistent with the expected course of the were found. Additions to the history and/or subsequent changes in the physical findings follow. Patient obs overnight and no leaking fluid. ROM + repeated and still -. STIVEN 4. FHTs reactive but with random decels. Discussed options with patient and recommend MIL. Patient agrees. Cervix 3/70/-2. Will move to labor room and start pitocin.
--- NOTE | 2024-03-02 08:18 | LDADM ---
This patient, Yao Robbins, was admitted to Labor/Delivery/Recovery 104 on 03/02/24 at 07:58. Plans for labor, pain management and were discussed with patient. Patient/family oriented to hospital policies and general routines including ID bracelet, bed and alarms, visiting hours, pain management, procedures, bathroom and other care routines, personal items, smoking policy, room service/diet and guest tray routines, security routines, and visiting hours. Patient/Family are encouraged to report perceived risks to care and to ask questions if they do not understand what they are told or what they should do. See OBIX for further documentation.
[2024-03-02] MEDS: OXYTOCIN 30 UNITS/NS 500 ML 30 UNITS/500 ML BAG IV CONT (08:37)
[2024-03-02] MEDS: AMPICILLIN 2 GM/NS 100 ML 2 GM/100 ML BAG IVPB (09:30)
[2024-03-02 11:31] LABS: HIV 1/2 Ab P24 Ag Result Negative (Negative)
[2024-03-02 11:38] LABS: Rapid Plasma Reagin Non-Reactive (NonReactive)
[2024-03-02] MEDS: LACTATED RINGERS 1,000 ML 125 ML IV CONT ×3 (12:48→23:41)
[2024-03-02] MEDS: AMPICILLIN 1 GM/NS 50 ML 1 GM/50 ML BAG IVPB ×3 (13:10→22:08)
--- NOTE | 2024-03-02 13:58 | WPDANESEPP ---
Anes - Eval Pre Procedure Procedure: labor epidural Date/Time: 03/02/24 13:58 Surgeon: Osiris Preop Diagnosis: Pain during labor Pre Op Diagnosis: Leaking Fluid Patient Data Age: 23 Gender: F Height: 1.6 m Weight: 122.5 kg Last Vital Signs Temp 36.3 C L 03/02/24 11:33 Pulse 72 03/02/24 13:31 BP 138/80 03/02/24 13:31 Pulse Ox 100 03/02/24 13:55 O2 Del Method Room Air 03/02/24 06:22 Allergies Allergy/AdvReac Type Severity Reaction Status Date / Time No Known Allergies Allergy Verified 03/02/24 07:49 Home Medications Medication Instructions Recorded Confirmed Type albuterol sulfate 90 mcg/actuation 2 puff inhalation Q6H PRN Wheezing 05/16/22 03/02/24 History aerosol inhaler cholecalciferol (vitamin D3) 1,250 1,250 mcg PO WEEKLY 05/16/22 03/02/24 History mcg (50,000 unit) tablet polysaccharide iron complex 150 mg 150 mg PO BIDWM 60 days #120 caps 06/09/22 03/02/24 Rx iron capsule vitamin-ferrous fumarate 1 tablet PO DAILY #90 tabs 06/09/22 03/02/24 Rx 28 mg iron-folic acid 800 mcg tablet ( Vitamins with Minerals) Laboratory Tests 03/01/24 03/02/24 19:08 10:18 WBC 11.4 H K/mm3 (4.5-10.0) RBC 3.22 L M/mm3 (4.2-5.4) Hgb 9.0 L g/dL (12.0-15.0) Hct 28.1 L % (37.0-47.0) MCV 87.3 fl (80-100) MCH 28.0 pg (26-34) MCHC 32.0 g/dl (32-36) RDW 13.9 % (11.5-14.5) Plt Count 339 k/mm3 (150-375) MPV 10.0 fl (7.4-10.4) Immature Gran % (Auto) 0.6 H % (0-0.5) Neut % (Auto) 70.3 % (45.5-73.1) Lymph % (Auto) 21.3 % (18.3-44.2) [place] % (Auto) 6.9 % (2.6-8.5) Eos % (Auto) 0.5 % (0-4.4) Baso % (Auto) 0.4 % (0.2-1.2) Lymph # (Auto) 2.42 K/mm3 (0.9-3.2) [place] # (Auto) 0.8 H K/mm3 (0.1-0.6) Eos # (Auto) 0.1 K/mm3 (0-0.3) Baso # (Auto) 0.0 K/mm3 (0.0-0.1) Abs Immat Gran (auto) 0.07 H K/mm3 (0.00-0.031) Absolute Neuts (auto) 8.0 H K/mm3 (1.3-6.7) Absolute Nucleated RBC 0.000 K/mm3 (0.0-0.012) Nucleated RBC % 0.0 % (0.0-0.2) Urine Color Yellow (Yellow) Urine Appearance Clear (Clear) Urine pH 7.5 (5.0-9.0) Ur Specific [place] 1.014 (1.001-1.035) Urine Protein Negative mg/dL (Negative) Urine Glucose (UA) Negative mg/dL (Negative) Urine Ketones 2+ H mg/dL (Negative) Ur Blood (Man) Negative (Negative) Urine Nitrate Negative (Negative) Urine Bilirubin Negative (Negative) Urine Urobilinogen 1.0 mg/dL (<2.0) Leukocyte Esterase Rfl Negative SRIKANTH/UL (Negative) RPR Non-reactive (NonReactive) HIV 1&2 Ab/P24 Ag 4thGn Negative (Negative) Blood Type A Positive Antibody Screen Negative Patient hx anesthesia problems: none Family hx anesthesia problems: none Results Review: All pre-operative results and documents have been reviewed as part of the pre-operative evaluation. [facility] Family History Family History Father Family history of malignant neoplasm of testis Social History Social History Smoking status: Never smoker Second hand tobacco smoke exposure: No Alcohol intake: never Substance use: never Substance use type: does not use Do You Feel Safe in your Home?: Yes Lack of Transportation: No Lack of Food: Never True Current Housing: I Have Housing Concerned About Future Housing: No Difficulty Paying Gas/Electric Bills: No Difficulty Paying for Meds: No Currently Unemployed: No Education: Associate Degree Difficulty w/ Childcare or Family Care: No Spiritual care concerns: No Exam Day of Procedure 03/02/24 13:58 Patient weight: morbidly obese Heart: re
[2024-03-02] MEDS: LORATADINE 10 MG TABLET PO (21:06)
[2024-03-03] VITALS (182 sets, daily range): BP systolic 93–178; BP diastolic 51–135; PULSE 62–228; RESP 16–18; TEMP 36.6–37; O2SAT 80–100
[2024-03-03] MEDS: AMPICILLIN 1 GM/NS 50 ML 1 GM/50 ML BAG IVPB ×2 (02:05→06:00)
[2024-03-03] MEDS: LACTATED RINGERS 1,000 ML 125 ML IV CONT (07:34)
--- NOTE | 2024-03-03 07:34 | PM.OBPNLAB ---
Pain Control Date/time seen: 03/03/24 07:30 Pain control: tolerating well and epidural Comments: Epidural recently replaced. Pelvic Exam Dilation (cm): 7 Effacement (%): 90 station: -1 Amniotic membrane status: Bulging Contractions Monitor mode: External Contraction intensity: Moderate Status status: Category ll Comments: One recent short variable deceleration, otherwise Cat 1 tracing with accelerations. Assessment and Plan Assessment: induction ongoing Comments: CNM discussed plan of care with Dr. Newell at 0615 this am. Care assumed. CNM to bedside. Discussed plan of care and option for amniotomy. Discussed risks, benefits, and expectations of breaking water and IUPC placement Patient is agreeable. BBOW present. Amniotomy performed and there was a small return of clear amniotic fluid. IUPC placed easily and clear fluid returned. Patient tolerated procedure well. Anticipate vaginal . Dr. Newell updated.
--- NOTE | 2024-03-03 10:08 | PM.OBPRVD ---
OB - Vaginal Delivery Note Procedure Delivery date: 03/03/24 Events: Oligohydramnios Induction method: Per Pitocin Protocol Delivery augmentation: Rupture of Membranes Delivery monitor: External FHT and Internal Uterine Route of delivery: Episiotomy description: None Laceration Description: None Specimen: Yes (placenta) Quantitative Blood Loss (ml): 125 Anesthesia type: Epidural Disposition: Floor Complications: No immediate complications Narrative: Yao Arrived from home after oligohydramnios seen on ultrasound. Pitocin was started and she received an epidural for analgesia. She made slow progress to 6 cm. Membranes were ruptured at 7 cm and she quickly progressed to complete dilation. She pushed very well with contractions and quickly brought the head to complete crown. There was excellent restitution.She easily delivered both the anterior and posterior shoulders followed by the remainder of the . the infant was placed on the maternal abdomen and dried and stimulated by the nursery staff. After 1 minute of life, the cord was doubly clamped and cut. A small gush of blood was noted with umbilical cord lengthening. Gentle traction was applied to the cord and fundal massage was administered. There was evulsion of the umbilical cord with no delivery of the placenta. CNM performed vaginal exam and the placenta was noted to be positioned residential in the cervix. The placental tissue was grasped and traction applied and the placenta was delivered intact. Calcifications were noted. There was excellent uterine tone and hemostasis. All delivery counts correct. Mother and baby skin to skin in the delivery room Baby Date of : 03/03/24 Time of : 09:47 Weeks of gestation at delivery: 37 Infant gender: Male Weight (pounds): 7 Weight (ounces): 5 presentation: vertex position: Right Occiput Anterior Cord Vessel Description: 3 Vessels and Delayed Cord Clamping score one minute: 8 score five minutes: 9
--- NOTE | 2024-03-03 10:15 | PM.OBDSVD ---
DS: Admitting Diagnosis Discharge Date 03/04/24. Discharged by Dr. Newell Admitting Diagnosis 23 y.o. at 37 weeks Oligohydramnios Asthma DS: Discharge Diagnosis Discharge Diagnosis (1) Mother currently breast-feeding: Code(s): Z39.1 - Encounter for care and examination of lactating mother Status: Acute (2) (normal spontaneous vaginal delivery): Code(s): O80 - Encounter for full-term uncomplicated delivery Status: Acute OB - DS: Summary Hospital Course Hospital Course: Uncomplicated OB Procedures : Ultrasound OB Procedures Intrapartum: Spontaneous Vag Delivery and GBS prophylaxis OB Procedures: : None Peripartum Data Infant Delivery Method: Natural Vaginal Laceration Description: None Episiotomy description: None complications: none Status at Discharge Overall status at discharge: patient is progressing back to baseline Time Spent with Patient Time attestation: Total time spent providing and/or coordinating discharge services: DS: Data Data Completed and Pending Labs on day of discharge: Labs from last 24 hours 03/02/24 10:18 RPR Non-reactive HIV 1&2 Ab/P24 Ag 4thGn Negative Blood Type A Positive Antibody Screen Negative Discharge Plan Discharge Attending physician on discharge: Angelita Newell Consulting providers: Nena Warren; Shahzad Castro V.; Garrick Sanders Discharging Clinician: Angelita Newell Patient Disposition: Home, Self-Care Activity: pelvic rest Diet: regular Wound Care Instructions: follow printed instructions Discharge Instructions: Continue taking your vitamin and any other supplements as previously directed (Examples: Iron, Vitamin D). You may take Tylenol 1000mg over the counter every 6 hours as needed for pain. Do not exceed 4000mg of Tylenol daily. You may continue using tucks pads and dermoplast spray if needed for a few more days. Depression Notify provider for signs or symptoms. These may include- Feelings: Feeling anxious, angry, hopeless, guilt, or loss of interest/pleasure in activities you normally enjoy. Mood swings or panic attacks. General: Extreme fatigue, loss of your appetite, feeling restless. Crying excessively, irritability, insomnia Psychological: Lack of concentration, depression or fear, unwanted thoughts Weight: Significant gain or loss Safety: Thoughts of harming yourself or your baby. Education: Mom and Baby Guide Given to: Mother Follow-Up: Call your delivering provider's office for an appointment to be seen in: Mom and baby should come to the [facility] for the follow-up appointment. Appointment Date/Time: March 07, 2024 at 11:00 am What to expect at your follow-up visit: Physical Assessment Call [phone] if you are unable to keep your appointment time. BREAST CARE: * Wear a snug supportive bra. * For engorgement discomfort: Breast Feeding: * Apply warm moist washcloths * Express milk as needed to relieve engorgement * Wear loose clothing Bottle Feeding: * May apply ice packs * For sore nipples: * Identify correct latch-on * Apply warm moist washcloths before and after nursing * Air dry nipples after nursing * May apply Lansinoh cream to nipples EPISIOTOMY/PERINEAL CARE: * Until bleeding stops, use your cathy bottle after urinating * Change your pad frequently throughout the day * You may take sitz baths several times a day (fill your bathtub with warm water and soak for 20 minutes.) Do NOT bathe in the water * No tub baths until seen by your physician - You may shower ACTIVITY: * Rest as much as possible. * Do not exercise or lift anything heavier than your baby (such as laundry or other children.) * Avoid stairs or driving as much as po
[2024-03-03] MEDS: IBUPROFEN 600 MG TABLET PO ×2 (11:15→19:24)
[2024-03-03] MEDS: WITCH HAZEL 40 PADS 1 PAD TOPICAL (11:16)
[2024-03-03] MEDS: BENZOCAINE 20% AER SPR (*SP) 56 GM CAN 1 SPRAY TOPICAL (11:16)
--- NOTE | 2024-03-03 12:36 | PC.NURSE ---
Patient transferred to post room #277 via wheelchair. Support person present. Oriented to unit, room, information board, rooming in, admission packet and security measures. Patient verbalizes understanding.
[2024-03-03] MEDS: ACETAMINOPHEN 325 MG TABLET 650 MG PO (13:09)
[2024-03-03] MEDS: DOCUSATE SODIUM 100 MG CAPSULE PO (19:24)
[2024-03-03] MEDS: POLYSACCHARIDE IRON COMPLEX 150 MG CAPSULE PO (19:24)
[2024-03-04] MEDS: ACETAMINOPHEN 325 MG TABLET 650 MG PO ×2 (00:08→08:52)
[2024-03-04 04:17] VITALS: BP 122/81; PULSE 67; RESP 18; TEMP 36.4; O2SAT 100
[2024-03-04 04:51] LABS: Hematocrit 25.1 % (37.0-47.0); Hemoglobin 7.8 g/dL (12.0-15.0)
[2024-03-04] MEDS: IBUPROFEN 600 MG TABLET PO (04:53)
[2024-03-04 08:00] VITALS: BP 126/81; PULSE 60; RESP 18; TEMP 36.8; O2SAT 99
[2024-03-04] MEDS: MULTIVIT/MIN/PREN/FOL AC/IRON TABLET 1 TAB PO (08:51)
[2024-03-04] MEDS: POLYSACCHARIDE IRON COMPLEX 150 MG CAPSULE PO (08:51)
[2024-03-04] MEDS: ERGOCALCIFEROL 50,000 UNITS CAPSULE 50000 UNITS PO (08:52)
[2024-03-04] MEDS: DOCUSATE SODIUM 100 MG CAPSULE PO (08:52)
--- NOTE | 2024-03-04 08:52 | PM.OBPNVD ---
OB - PN: Subj Subjective Date/time seen: 03/04/24 08:52 Patient comments: no complaints and pain well controlled baby status: doing well OB - PN: Obj Data Labs 03/04/24 04:23 Labs: Laboratory Results - last 24 hr 03/04/24 04:23 Hgb 7.8 L Hct 25.1 L OB - PN A/P Plan day: 1 Plan: routine care, discharge home, follow up 6 weeks and other (Plans ) Time Spent With Patient Time: Total time spent is greater than 50% in coordination of care (as documented) at patient's floor/unit and/or counseling patient: Exam : Bimanual exam- vagina & uterus: other (Uterus firm, nt @U)
[2024-03-07 11:42] VITALS: BP 140/71; PULSE 82; RESP 18; TEMP 37.1; O2SAT 100
== END 2024-03-04 14:00 | disposition home or self-care (01) | DRG 807 ==
LOC: ANHOBPP 03-02 07:59 → ANHLDR 03-02 08:04 → ANHOB2 03-03 12:46
PROVIDERS: Admitting Provider Obstetrics & Gynecology Gynecology; PCP Advanced Practice Midwife; Visit Provider Obstetrics & Gynecology Gynecology
DX: O41.03X0 Oligohydramnios, third trimester, not applicable or unspecified (principal); Z37.0 Single live birth; Z3A.37 37 weeks gestation of pregnancy; O36.8330 Maternal care for abnormalities of the fetal heart rate or rhythm, third trimester, not applicable or unspecified
CPT/HCPCS: 36415; 76815; 81003; 85014; 85018; 85025; 86592; 86703; 86850; 86900; 86901; 88307; 96360; 96361; A9270; G0378; G0379; G0432; J0290; J2590; J2795; J7120

== ENCOUNTER 2024-06-27 08:38 | Outpatient (CLI) | payer OTHER, SELFPAY ==
--- NOTE | ~2024-06-27 | US_ITS ---
Right upper quadrant ABDOMINAL ULTRASOUND Ordering provider: Nena Warren CNM History: . RUQ PAIN;R/O GALLSTONES . Comparison: None. FINDINGS: LIVER: Normal size and echotexture. No focal hepatic lesions or perihepatic fluid collections are evert ntified. Portal vein flow is normal. GALLBLADDER: Possible GALA sign. No evidence for sludge, gallbladder wall thickening or pericholecysti c fluid collections. Wall thickness is 0.3 cm. A negative sonographic Gates's sign was noted. BILIARY DUCTS: No evidence for intra or extrahepatic biliary dilation. Common bile duct measures 7.4 mm in diameter which is within normal limits. PANCREAS: Partially visualized. No definite abnormality seen. UPPER ABDOMINAL AORTA: Normal in caliber. IVC: Patent. FREE FLUID: None. IMPRESSION: GALA sign is noted suggestive of cholelithiasis. Otherwise, unremarkable Right upper quadrant abdomina l ultrasound. Reviewed, dictated and finalized at location A. IMPRESSION: GALA sign is noted suggestive of cholelithiasis. Otherwise, unremarkable Right u pper quadrant abdominal ultrasound.
== END 2024-06-27 08:39 | disposition home or self-care (01) ==
LOC: ANHIMG 08:41
PROVIDERS: Visit Provider Advanced Practice Midwife
DX: R10.11 Right upper quadrant pain (principal)
CPT/HCPCS: 76705